=== PATIENT | male | born 1930 | race American Indian/Alaskan Native ===

== ENCOUNTER 2017-01-23 14:40 | Emergency (ER) | payer MEDICARE ==
--- NOTE | 2017-01-23 16:01 | Emergency Department Report ---
ED Fall HPI - General Chief Complaint: Fall Stated Complaint: GROUND LEVEL FALL Time Seen by Provider: 01/23/17 15:49 Source: EMS Mode of arrival: Stretcher Limitations: Physical Limitation, Other (PATIENT IS NOT COMMUNICATING) - History of Present Illness Initial Comments: PATIENT BROUGHT BY EMS FROM [place] STATED THAT PATIENT HAS A GROUND LEVEL FALL. PATIENT IS USUALLY CONFUSED DUE TO ADVANCED DEMENTIA. [place] REPORTED A BREIF PERIOD OF LOC. MD Complaint: fall -: Sudden When Fall Occurred: unsure Place Fall Occurred: custodial/SNF Loss of Consciousness: other (UNKNOWN) Prolonged Down Time?: no Symptoms Prior to Fall: none Location: head, face Context: tripped/slipped - Related Data Home Medications Medication Instructions Recorded Confirmed Last Taken Aspirin [Aspirin BABY CHEW TAB] 81 mg PO QDAY 02/15/15 05/22/16 05/22/16 Brimonidine Tartrate [Brimonidine 15 ml OU BID 02/15/15 05/22/16 05/22/16 Tartrate 0.2%] Cyanocobalamin [Vitamin B-12] 1,000 mcg PO DAILY 02/15/15 05/22/16 05/22/16 Docusate Sodium [Colace CAP] 100 mg PO BID 02/15/15 05/22/16 05/22/16 Donepezil [Aricept] 10 mg PO QDAY 02/15/15 05/22/16 05/22/16 Ketoconazole 2% [Nizoral] 1 applicatio TP QDAY 02/15/15 05/22/16 05/22/16 Lisinopril/Hydrochlorothiazide 1 each PO DAILY 02/15/15 05/22/16 05/22/16 [Zestoretic 20-25 mg] Omeprazole [PriLOSEC] 20 mg PO QDAY 02/15/15 05/22/16 05/22/16 QUEtiapine [SEROquel] 300 mg PO QHS 02/15/15 05/22/16 05/22/16 Quetiapine Fumarate [Seroquel] 50 mg PO BID 02/15/15 05/22/16 05/22/16 LORazepam [Ativan] 0.5 mg PO Q4H PRN 04/25/16 05/22/16 05/22/16 OXcarbazepine [Trileptal] 150 mg PO BID 04/25/16 05/22/16 05/22/16 Omeprazole Magnesium [PriLOSEC Otc] 20 mg PO QDAY 04/25/16 05/22/16 05/22/16 Temazepam [Restoril] 30 mg PO QHS PRN 04/25/16 05/22/16 05/22/16 medroxyPROGESTERone ACETATE 10 mg PO QDAY 04/25/16 05/22/16 05/22/16 [Provera] Previous Rx's Medication Instructions Recorded Last Taken Type Clindamycin [Clindamycin CAP] 300 mg PO Q8H #20 cap 04/25/16 05/22/16 Rx HYDROcodone/APAP 5-325 [[place] 1 - 2 each PO Q6HR PRN #10 tablet 04/26/16 Rx 5/325] Allergies Allergy/AdvReac Type Severity Reaction Status Date / Time No Known Allergies Allergy Verified 01/23/17 15:34 ED Review of Systems ROS: Stated complaint: GROUND LEVEL FALL Other details as noted in HPI Comment: Unobtainable due to pts medical conditions Constitutional: no symptoms reported ED Past Medical Hx - Past Medical History Previous Medical History?: Yes Hx Hypertension: Yes Hx CVA: Yes Hx GERD: Yes Hx COPD: Yes Hx Dementia: Yes Additional medical history: alzeimhers. glaucoma. bph. psychosis - Surgical History Additional Surgical History: unknown - Social History Smoking Status: Never Smoker Substance Use Type: None - Medications Home Medications: Home Medications Medication Instructions Recorded Confirmed Last Taken Type Aspirin [Aspirin BABY CHEW TAB] 81 mg PO QDAY 02/15/15 05/22/16 05/22/16 History Brimonidine Tartrate [Brimonidine 15 ml OU BID 02/15/15 05/22/16 05/22/16 History Tartrate 0.2%] Cyanocobalamin [Vitamin B-12] 1,000 mcg PO DAILY 02/15/15 05/22/16 05/22/16 History Docusate Sodium [Colace CAP] 100 mg PO BID 02/15/15 05/22/16 05/22/16 History Donepezil [Aricept] 10 mg PO QDAY 02/15/15 05/22/16 05/22/16 History Ketoconazole 2% [Nizoral] 1 applicatio TP QDAY 02/15/15 05/22/16 05/22/16 History Lisinopril/Hydrochlorothiazide 1 each PO DAILY 02/15/15 05/22/16 05/22/16 History [Zestoretic 20-25 mg] Omeprazole [PriLOSEC] 20 mg PO QDAY 02/15/15 05/22/16 05/22/16 History QUEtiapine [SEROquel] 300 mg PO QHS 02/15/15 05/22/16 05/22/16 History Quetiapine Fumarate [Seroquel] 50 mg PO BID 02/15/15 05/22/16 05/22/16 History Clindamycin [Clindamycin CAP] 300 mg PO Q8H #20 cap 04/25/16 05/22/16 05/22/16 Rx LORazepam [Ativan] 0.5 mg PO Q4H PRN 04/25/16 05/22/16 05/22/16 History OXcarbazepine [Trileptal] 150 mg PO BID 04/25/16 05/22/16 05/22/16 History Omeprazole Magnesium [PriLOSEC Otc] 20 mg PO QDAY 04/25/16 05/22/16 05/22/16 History Temazepam [Restoril] 30 mg PO QHS PRN 04/25/16 05/22/16 05/22/16 History medroxyPROGESTERone ACETATE 10 mg PO QDAY 04/25/16 05/22/16 05/22/16 History [Provera] HYDROcodone/APAP 5-325 [[place] 1 - 2 each PO Q6HR PRN #10 tablet 04/26/1605/22/16 Rx 5/325] ED Physical Exam - General Limitations: Altered Mental Status, Physical Limitation General appearance: alert - Head Head exam: Present: atraumatic - Expanded Head Exam Expanded Head exam: Present: laceration (0.5 CM ABRASION TO THE LEFT EYEBROW). Absent: abrasion, general tenderness - Eye Eye exam: Present: normal appearance - ENT ENT exam: Present: normal exam, normal orophraynx - Expanded Neck Exam Expanded Neck exam: Present: other (C-COLLAR IN PLACE) - Respiratory Respiratory exam: Present: normal lung sounds bilaterally. Absent: respiratory distress, wheezes, rales, rhonchi, stridor - Cardiovascular Cardiovascular Exam: Present: regular rate, normal heart sounds - GI/Abdominal GI/Abdominal exam: Present: soft - Back Exam Back exam: Present: normal inspection - Neurological Exam Neurological exam: Present: alert, CN II-XII intact. Absent: oriented X3, normal gait - Skin Skin exam: Present: abrasion ED Course Vital Signs 01/23/17 15:34 Temperature 98.6 F Pulse Rate 81 Respiratory 20 Rate Blood Pressure 171/101 O2 Sat by Pulse 100 Oximetry - Reevaluation(s) Reevaluation #1: 01/23/17 17:55 PATIENT IS ALERT, NO ACUTE DISTRESS. PATIENT CT BRAIN,NECK AND ABDOMEN WITH NO ACUTE FINDING. ED Medical Decision Making - Radiology Data Radiology results: report reviewed, image reviewed NO ACUTE FINDING - Medical Decision Making PATIENT IS STABLE TO BE TRANSFER BACK TO LONG TERM WITH FALL PRECAUTION INSTRUCTIONS Critical care attestation.: If time is entered above; I have spent that time in minutes in the direct care of this critically ill patient, excluding procedure time. ED Disposition Clinical Impression: Head injury Disposition: DC-01 TO HOME OR SELFCARE Is pt being admited?: No Does the pt Need Aspirin: No Condition: Stable Instructions: Minor Head Injury (ED), Fall Prevention for Older Adults (ED) Referrals: PRIMARY CARE, [Primary Care Provider] - 3-5 Days Time of Disposition: 17:59
--- NOTE | 2017-01-23 16:27 | XRay Report ---
Left hip 2 views: History: Left hip pain. Findings: Arthritic changes left hip. No fracture or dislocation. No soft tissue calcification. Impression: No evidence of acute fracture.
--- NOTE | 2017-01-23 17:04 | Cat Scan Report ---
FINAL REPORT EXAM: CT HEAD/BRAIN WO CON HISTORY: ground level fall TECHNIQUE: CT of the Head without IV contrast. PRIORS: CT head May 22, 2016. FINDINGS: Decreased attenuation regions in the periventricular and subcortical white matter are nonspecific and may represent small vessel ischemic disease or a demyelinating process. Small vessel ischemic disease is more likely. Small to moderate areas of encephalomalacia probably related to chronic ischemia noted within both basal ganglia and in some areas of the periventricular white matter. Similar to prior. Vascular calcifications noted. Moderate atrophy. There is no evidence for acute ischemia. There is no hemorrhage. There is no midline shift. There is no hydrocephalus. There is no mass. Age appropriate anaya-white matter attenuation is noted. There is no calvarial fracture. The temporal bones demonstrate aerated mastoid air cells. The middle ears appear unremarkable. Patient status post bilateral uncinectomy and turbinectomy. Hzth-wa-cabylggw mucosal thickening in the ethmoid sinuses. Globes are intact. IMPRESSION: No acute intracranial findings. Chronic ischemic disease. Severe. Similar to prior. Atrophy, moderate. Postsurgical changes within the sinuses. Ethmoid sinus disease.
--- NOTE | 2017-01-23 17:20 | Cat Scan Report ---
FINAL REPORT PROCEDURE: CT C-SPINE WO CONTRAST TECHNIQUE: Computerized tomography of the cervical spine was performed from the skull base to T1 without contrast material. HISTORY: NECK pain s/P FALL COMPARISON: 04/26/2016 FINDINGS: There is again visualized a large gas-filled structure contiguous with the esophagus, projecting into the left medial neck soft tissues, which may be an esophageal diverticulum. This contains ill-defined material, likely related to ingested substances, but otherwise is unchanged appearance since the prior study. Posterior left neck subcutaneous lipoma again visualized. The vertebral body heights and alignment are maintained. Multilevel degenerative disc and facet arthritic changes are present. No acute fracture or subluxation is seen. IMPRESSION: No acute fracture or subluxation. Other findings as above.
--- NOTE | 2017-01-23 17:29 | Cat Scan Report ---
FINAL REPORT PROCEDURE: CT ABDOMEN PELVIS WO CON TECHNIQUE: Computerized axial tomography of the abdomen and pelvis was performed without intravenous contrast. This study is performed without intravascular contrast material and its sensitivity for abdominal and pelvic pathology, including neoplasms, inflammation, abscess, free fluid, thrombosis, arterial dissection and infarction, is reduced compared with a contrast enhanced study. HISTORY: ground level fall. Pain COMPARISON: No prior studies are available for comparison. FINDINGS: Visualized lower thorax: Ground-glass opacity in the left posterior lung base may be related to atelectasis or early infiltrate. No pleural effusion is seen. Liver: Normal size and attenuation. Spleen: Normal size and attenuation. Gallbladder and biliary system: Gallbladder is not visualized. Pancreas: Normal. Adrenals: Normal. Kidneys: Bilateral rounded renal low-density lesions are likely cysts. No hydronephrosis bilaterally. GI tract: Gastrostomy tube tip is in the mid stomach. The appendix is visualized and does not appear inflamed. Large volume of stool is seen in the colon, particularly the rectosigmoid colon. There is diffuse wall thickening of the rectosigmoid colon as well, suggesting colitis. There is more lobular wall thickening of the distal rectum, not fully evaluated. No bowel obstruction identified. Lymph nodes and mesentery: Normal. Vasculature: Aorto bi-iliac stent is present. Bladder: Normal. Reproductive organs: Prostate calcifications are noted. Peritoneum: No free fluid. Musculoskeletal structures: There is hardware in the proximal right femur. Old healed right rib fractures are noted. No acute fractures are seen. Other: None. IMPRESSION: No free intraperitoneal fluid. No acute fracture is seen. There is diffuse wall thickening of the rectosigmoid colon, with more nodular thickening of the distal rectum. Recommend further evaluation to exclude colitis or possible neoplasm of the distal rectum. No significant surrounding inflammation is seen.
[2017-01-23 18:09] LABS: INR 1.1 (0.87-1.13); Partial Thromboplastin Time 20.7 Sec. (24.2-36.6)
[2017-01-23 18:12] LABS: Anion Gap 18 mmol/L; Blood Urea Nitrogen 12 mg/dL (9-20); Calcium 8.7 mg/dL (8.4-10.2); Carbon Dioxide 23 mmol/L (22-30); Chloride 108.9 mmol/L (98-107); Glucose 102 mg/dL (75-100); Potassium 3.7 mmol/L (3.6-5.0); Sodium 146 mmol/L (137-145)
[2017-01-23 18:35] LABS: Hematocrit 33.3 % (35.5-45.6); Hemoglobin 10.5 gm/dl (11.8-15.2); Mean Corpuscular HGB Conc 32 % (32-34); Mean Corpuscular Volume 80 fl (84-94); Red Blood Count 4.17 M/mm3 (3.65-5.03); Red Cell Distribution Width 18.3 % (13.2-15.2)
[2017-01-23 18:37] LABS: Mean Corpuscular Hemoglobin 25 pg (28-32)
[2017-01-23 20:01] LABS: Basophils % (Manual) 0 % (0.0-1.8); Blastocytes % (Manual) 0 %
[2017-01-23 20:02] LABS: Anisocytosis 1+; Diff Status Complete; Elliptocytes Few; Platelet Estimate Consistent w Auto; Polychromasia Few
[2017-01-23 20:03] LABS: Platelet Count 213 K/mm3 (140-440); White Blood Count 11.6 K/mm3 (4.5-11.0)
[2017-01-23 20:58] VITALS: BP 155/95
== END 2017-01-23 20:59 | disposition home or self-care (01) ==
LOC: ED 14:40
DX: S01.91XA Laceration without foreign body of unspecified part of head, initial encounter (principal); I10 Essential (primary) hypertension; K21.9 Gastro-esophageal reflux disease without esophagitis; J44.9 Chronic obstructive pulmonary disease, unspecified; F03.90 Unspecified dementia, unspecified severity, without behavioral disturbance, psychotic disturbance, mood disturbance, and anxiety; N40.0 Benign prostatic hyperplasia without lower urinary tract symptoms; Z79.82 Long term (current) use of aspirin; Z86.73 Personal history of transient ischemic attack (TIA), and cerebral infarction without residual deficits; W01.0XXA Fall on same level from slipping, tripping and stumbling without subsequent striking against object, initial encounter; Y93.89 Activity, other specified; Y92.89 Other specified places as the place of occurrence of the external cause; Y99.8 Other external cause status
CPT/HCPCS: 36415; 70450; 70490; 74176; 80048; 85007; 85025; 85610; 85730; 99285